=== PATIENT | female | born 1975 | race Two or more races ===

== ENCOUNTER → 2016-10-23 | Outpatient (CLI) | payer OTHER ==
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
== END ==
LOC: CIMAGING 10:20
PROVIDERS: ATTEND Physical Medicine & Rehabilitation
DX: M54.2 Cervicalgia (principal); Z87.828 Personal history of other (healed) physical injury and trauma
CPT/HCPCS: 72052-PO

== ENCOUNTER 2019-03-29 14:30 | Emergency (ER) | payer OTHER | END 2019-03-29 15:13 | disposition home or self-care (01) | LOC: CED 14:30 ==